=== PATIENT | female | born 1930 | race Two or more races ===

== ENCOUNTER 2016-04-28 15:07 | Emergency (ER) | payer MEDICARE, BC ==
[2016-04-28 16:43] VITALS: BP 128/95
--- NOTE | 2016-04-28 17:21 | UC ---
UC General HPI - HPI Summary HPI Summary: complaint of fatigue ever since she had pneumonia 10/2015 had pneumonia dx with legionnaires disease tretaed in the hopsital but hasn't felt like herself denies cough,shortness of breath and fever denies headache, sore throat,N/V/D currently taking augmentin for swollen glands and nasal congestion - seen by PCP last week currently being treated for arthritis by PCP with vicodin with relief of neck shoulder pain and headache - History of Current Complaint Chief Complaint: UCGeneralIllness Stated Complaint: SORE THROAT/COUGH Time Seen by Provider: 04/28/16 17:10 Hx Obtained From: Patient - Allergy/Home Medications Allergies/Adverse Reactions: Allergies Allergy/AdvReac Type Severity Reaction Status Date / Time codeine Allergy Vomiting Uncoded 04/28/16 16:47 Home Medications: Home Medications 1200 Calcium 1 tab PO BID 04/28/16 [History Confirmed 04/28/16] Amoxicillin/Clavulanate TAB* [Augmentin TAB 500 mg*] 500 mg PO BID 04/28/16 [ History Confirmed 04/28/16] Folic Acid TAB* [Folvite TAB*] 1 mg PO DAILY 04/28/16 [History Confirmed ] Hydrocodone-Acetaminophen [Vicodin 5-300 mg] 1 tab PO Q6HR PRN 04/28/16 [ History Confirmed 04/28/16] Indapamide 1.25 mg PO DAILY 04/28/16 [History Confirmed 04/28/16] Lactobacillus Acidophilu (GG)* [Culturelle*] 1 cap PO BID 04/28/16 [History Confirmed 04/28/16] Levothyroxine Sodium [Levoxyl] 1 tab PO QAM 04/28/16 [History Confirmed 04/28/16 ] Meclizine TAB* [Antivert 12.5 TAB*] 12.5 mg PO TID PRN 04/28/16 [History Confirmed 04/28/16] Meloxicam [Mobic] 15 mg PO DAILY 04/28/16 [History Confirmed 04/28/16] Multiple Vitamins W/ Minerals [Ocuvite Eye Health Formul] 2 cap PO DAILY [History Confirmed 04/28/16] PMH/Surg Hx/FS Hx/Imm Hx Previously Healthy: No - URI, - Surgical History Surgical History: Yes Surgery Procedure, Year, and Place: both rotator cuffs, lower back, R ankle fx repair - Social History Occupation: Disabled Lives: With Family Alcohol Use: Daily Alcohol Amount: wine Substance Use Type: None Smoking Status (MU): Never Smoked Tobacco Review of Systems Constitutional: Fatigue Skin: Negative Eyes: Negative ENT: Nasal Discharge Respiratory: Negative Cardiovascular: Negative Gastrointestinal: Negative Genitourinary: Negative Motor: Negative Neurovascular: Negative Musculoskeletal: Negative Neurological: Negative Psychological: Negative All Other Systems Reviewed And Are Negative: Yes Physical Exam Triage Information Reviewed: Yes Appearance: No Pain Distress, Well-Nourished, Thin Vital Signs: Initial Vital Signs Temp 98.3 F 04/28/16 16:35 Pulse 89 04/28/16 16:35 Resp 16 04/28/16 16:35 BP 128/95 04/28/16 16:35 Pulse Ox 98 04/28/16 16:35 Vital Signs Reviewed: Yes Eyes: Positive: Conjunctiva Clear ENT: Positive: Pharynx normal, Nasal congestion, TMs normal Neck: Positive: No Lymphadenopathy Respiratory: Positive: Lungs clear, Normal breath sounds, No respiratory distress. Negative: Rhonchi, Stridor, Wheezing Cardiovascular: Positive: RRR, No Murmur, Pulses Normal Abdomen Description: Positive: Nontender, Soft Bowel Sounds: Positive: Present Musculoskeletal: Positive: No Edema Neurological: Positive: Alert Psychological Exam: Normal Skin Exam: Normal Course/Dx - Course Course Of Treatment: exam completed. currently on augmentin for URI/sinusitis. chest x-ray negative for pneumonia, possible COPD followup with PCP - Differential Dx - Multi-Symptom Differential Diagnoses: Other - URI, pneumonia Provider Diagnoses: URI/sinsuitis resolving Discharge - Discharge Plan Condition: Stable Disposition: HOME Patient Education Materials: Sinusitis (ED) Referrals: Marcia Vasquez MD [Primary Care Provider] - Additional Instructions: Your chest x-ray shows that you have no pneumonia, you may have the beginning of chronic obstructive pulmonary disease-please call your primary care provider for followup. Please review your discharge instructions. If your symptoms do not improve please call your primary care provider or return to urgent care.
--- NOTE | 2016-04-28 17:42 | RAD ---
INDICATION: History of Legionnaire disease. Sore throat, cough. Headache, back of neck, joint pain. COMPARISON: Negative [place] [facility] [place] TECHNIQUE: Dual energy PA and routine lateral views of the chest were obtained. REPORT: Elevated lung volumes and mild prominence of interstitial markings. Small calcified granuloma at the LEFT lower lung zone peripherally. Negative for pleural effusion or pneumothorax. Negative for cardiomegaly. Unremarkable central pulmonary vasculature. Tortuous descending thoracic aorta. Surgical anchors in the bilateral humeral heads. Post resection of the distal RIGHT clavicle. IMPRESSION: Stigmata of potential chronic obstructive pulmonary disease as well as previous granulomatous disease. No acute cardiopulmonary process evident.
== END 2016-04-28 18:09 | disposition home or self-care (01) ==
LOC: UCCORT 15:07 → MERGE 15:07 → UCCORT 18:09
DX: J06.9 Acute upper respiratory infection, unspecified (principal); J32.9 Chronic sinusitis, unspecified; Z88.6 Allergy status to analgesic agent; H53.2 Diplopia
CPT/HCPCS: 36415; 71020; 85652; 86140; 99201; G0463

== ENCOUNTER 2017-08-21 11:08 | Emergency (ER) | payer MEDICARE, BC ==
[2017-08-21 12:03] VITALS: BP 152/74
--- NOTE | 2017-08-21 12:18 | RAD ---
INDICATION: LEFT wrist pain post fall on outstretched hand one week ago. COMPARISON: No relevant prior exams [place] [facility] [place]. TECHNIQUE: AP, lateral, and oblique views LEFT wrist. REPORT AND IMPRESSION: Bone density appears decreased throughout. No cortical disruption or suspicious trabecular irregularity to suggest fracture. Mild transverse diastases at the distal radial joint raising concern for TFCC degeneration or tear. 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 Nonfocal soft tissue swelling.
--- NOTE | 2017-08-21 12:19 | UC ---
Hand/Wrist HPI - HPI Summary HPI Summary: 87 yo female presents with left wrist pain s/p fall 10 days ago. She saw her PCP initially and was told it was likely a sprain, but to follow up for an XR if her pain persisted. Today she says her pain is much better but has some sharp pain with movement at the radial styloid. Denies numbness/tingling. - History Of Current Complaint Chief Complaint: UCUpperExtremity Stated Complaint: LEFT WRIST PAIN S/P FALL Time Seen by Provider: 08/21/17 11:57 Hx Obtained From: Patient Severity Initially: Severe Severity Currently: Moderate Pain Intensity: 5 Pain Scale Used: 0-10 Numeric Character Of Pain: Sharp Aggravating Factor(s): Movement - Allergies/Home Medications Allergies/Adverse Reactions: Allergies Allergy/AdvReac Type Severity Reaction Status Date / Time codeine AdvReac Vomiting Verified 08/21/17 11:56 peanut shell Allergy Hives Uncoded 08/21/17 11:56 Home Medications: Home Medications Acetaminophen [Acetaminophen Extra Strength] 1,000 mg PO QAM 08/21/17 [History Confirmed 08/21/17] C,E,Zinc,Copper 11/Nmntq9d/Lut [Ocuvite Adult 50 Plus Softgel] 1 each PO BID 02/28 [History Confirmed 08/21/17] Calcium Carbonate/Vitamin D3 [Calcium 600 + Vit D Tablet] 1 each PO BID [History Confirmed 08/21/17] Desloratidine (NF) [Clarinex (NF)] 5 mg PO DAILY 08/21/17 [History Confirmed 02/28] Folic Acid TAB* [Folvite TAB*] 1 mg PO DAILY 08/21/17 [History Confirmed ] Indapamide TAB* [Lozol TAB*] 2.5 mg PO DAILY 08/21/17 [History Confirmed ] Lactobacillus Acidophilus* [Culturelle*] 1 cap PO BID 08/21/17 [History Confirmed 08/21/17] Levothyroxine TAB* [Synthroid TAB*] 75 mcg PO DAILY 08/21/17 [History Confirmed 08/21/17] Meclizine TAB* [Antivert 12.5 TAB*] 12.5 mg PO TID PRN 08/21/17 [History Confirmed 08/21/17] Meloxicam(NF) [Mobic(NF)] 15 mg PO DAILY 08/21/17 [History Confirmed 08/21/17] PMH/Surg Hx/FS Hx/Imm Hx Endocrine History: Hypothyroidism Cardiovascular History: Hypertension - Surgical History Surgical History: Yes Surgery Procedure, Year, and Place: both rotator cuffs, lower back, R ankle fx repair - Family History Known Family History: Positive: Unknown - Social History Occupation: Retired Lives: With Family Alcohol Use: Daily Alcohol Amount: wine Substance Use Type: None Smoking Status (MU): Never Smoked Tobacco Review of Systems Constitutional: Negative Skin: Negative Respiratory: Negative Cardiovascular: Negative Neurovascular: Negative Musculoskeletal: Other: - LEft wrist pain Neurological: Negative Psychological: Negative All Other Systems Reviewed And Are Negative: Yes Physical Exam - Summary Physical Exam Summary: GENERAL: NAD. WDWN. No pain distress. SKIN: No rashes, sores, lesions, or open wounds. NECK: Supple. Nontender. No lymphadenopathy. CHEST: No accessory muscle use. Breathing comfortably and in no distress. CV: RRR. Without m/r/g. Pulses intact radial and ulnar. MSK: LEft wrist: Mild TTP over radial styloid. FROM. Strength 5/5 including deicer finisher strength. No edema or obvious bony deformities. No snuffbox tenderness. NEURO: Alert. Sensations intact hand and all fingers. PSYCH: Age appropriate behavior. Triage Information Reviewed: Yes Vital Signs: Initial Vital Signs Temp 97.9 F 08/21/17 11:51 Pulse 66 08/21/17 11:51 Resp 16 08/21/17 11:51 BP 152/74 08/21/17 11:51 Pulse Ox 97 08/21/17 11:51 Hand/Wrist Course/Dx - Course Course Of Treatment: XR: REPORT AND IMPRESSION: Bone density appears decreased throughout. No cortical disruption or suspicious trabecular irregularity to suggest fracture. Mild transverse diastases at the distal radial joint raising concern for TFCC degeneration or tear. 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 Nonfocal soft tissue swelling. Provided with thumb spica splint and f/u with ortho if needed. - Differential Dx/Diagnosis Provider Diagnoses: Left wrist pain Discharge - Sign-Out/Discharge Documenting (check all that apply): Discharge/Admit/Transfer - Discharge Plan Condition: Stable Disposition: HOME Patient Education Materials: Wrist Injury (ED) Referrals: Marcia Vasquez MD [Primary Care Provider] - Brett Webster MD [Medical Doctor] - If Needed Additional Instructions: If you develop a fever, shortness of breath, chest pain, new or worsening symptoms - please call your PCP or go to the ED. Your blood pressure was high at todays visit. Please see your primary provider within 4 weeks for recheck and re-evaluation 1) If your wrist is still bothering you in 1 week - please call Dr. Webster at the number below to schedule an appointment with him in [place]. - Billing Disposition and Condition Condition: STABLE Disposition: HOME
== END 2017-08-21 12:35 | disposition home or self-care (01) ==
LOC: UCCORT 11:08
DX: M25.532 Pain in left wrist (principal); Z88.5 Allergy status to narcotic agent; Z91.010 Allergy to peanuts; E03.9 Hypothyroidism, unspecified; I10 Essential (primary) hypertension; W19.XXXA Unspecified fall, initial encounter; Y93.9 Activity, unspecified; Y92.9 Unspecified place or not applicable
CPT/HCPCS: 99213; G0463

== ENCOUNTER 2018-01-29 17:28 | Emergency (ER) | payer MEDICARE, BC ==
[2018-01-29 18:10] VITALS: BP 149/82
[2018-01-29] MEDS ORDERED: Acetaminophen TAB* 325 MG PO ONE (18:33)
--- NOTE | 2018-01-29 18:55 | ED ---
Adult Trauma - HPI Summary HPI Summary: 87 yr old patient with complaint of fall. 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 She has pain left scapula, left para spinal t spine area, and the buttock area bilateral. - History of Current Complaint Chief Complaint: UCTrauma Stated Complaint: S/P FALL BACK PAIN Time Seen by Provider: 01/29/18 18:18 Pain Intensity: 10 - Allergy/Home Medications Allergies/Adverse Reactions: Allergies Allergy/AdvReac Type Severity Reaction Status Date / Time codeine AdvReac Vomiting Verified 08/21/17 11:56 peanut shell Allergy Hives Uncoded 08/21/17 11:56 Home Medications: Home Medications Acetaminophen [Extra Strength Non-Aspirin] 500 mg PO DAILY 01/29/18 [History Confirmed 01/29/18] PMH/Surg Hx/FS Hx/Imm Hx Endocrine/Hematology History: Reports: Hx Thyroid Disease Cardiovascular History: Denies: Hx Pacemaker/ICD Psychiatric History: Denies: Hx Panic Disorder - Surgical History Surgery Procedure, Year, and Place: both rotator cuffs, lower back, R ankle fx repair Infectious Disease History: No Infectious Disease History: Reports: Hx Hepatitis - 1953 Denies: History Other Infectious Disease, Traveled Outside the [place] in Last 30 Days - Family History Known Family History: Positive: Unknown - Social History Alcohol Use: Daily Alcohol Amount: wine Substance Use Type: Reports: None Smoking Status (MU): Never Smoked Tobacco Review of Systems Constitutional: Negative Positive: Other - back pain after fall. All Other Systems Reviewed And Are Negative: Yes Physical Exam Triage Information Reviewed: Yes Vital Signs On Initial Exam: Initial Vitals Temp Pulse Resp BP Pulse Ox 98.1 F 95 18 149/82 97 01/29/18 18:00 01/29/18 18:00 01/29/18 18:00 01/29/18 18:00 01/29/18 18:00 Vital Signs Reviewed: Yes Appearance: Positive: Well-Appearing, No Pain Distress Skin: Positive: Other - small bruise abrasion left paraspinal area t spine level about T 5 3 inches lateral. Head/Face: Positive: Normal Head/Face Inspection Eyes: Positive: EOMI ENT: Positive: Normal ENT inspection, Pharynx normal, TMs normal Neck: Positive: Supple, Nontender Respiratory/Lung Sounds: Positive: Clear to Auscultation, Breath Sounds Present Cardiovascular: Positive: RRR. Negative: Murmur Abdomen Description: Positive: Nontender Musculoskeletal: Positive: Strength/ROM Intact Neurological: Positive: Sensory/Motor Intact, Alert, Oriented to Person Place, Time, CN Intact II-III, Normal Gait, Finger to Nose, Speech Normal Psychiatric: Positive: Normal - [place] Coma Scale Best Eye Response: 4 - Spontaneous Best Motor Response: 6 - Obeys Commands Best Verbal Response: 5 - Oriented Coma Scale Total: 15 Diagnostics - Vital Signs Vital Signs Temp Pulse Resp BP Pulse Ox 01/29/18 18:00 98.1 F 95 18 149/82 97 - Laboratory Lab Statement: Any lab studies that have been ordered have been reviewed, and results considered in the medical decision making process. - Radiology T/L/S spine, pelvis, chest, scapula Xray Interpretation: Positive (See Comments) - ribs 5/6 on left posterior fx. No pneumo. DJD rest of spine. No acute fx seen. scapula neg. pelvis neg. Radiology Interpretation Completed By: ED Physician Adult Trauma Course/Dx - Course Course Of Treatment: 87 yr old with non displaced 5/6 rib fx on left posterior. Tylenol for pain. FU with PMD. She is 10 hours out from injury and good vital and saturation. No distress. - Diagnoses Provider Diagnoses: Left rib fracture, Hypertension Discharge - Sign-Out/Discharge Documenting (check all that apply): Patient Departure All imaging exams completed and their final reports reviewed: No - Discharge Plan Condition: Good Disposition: HOME Patient Education Materials: Rib Fracture (ED), Back Pain (ED), Hypertension ( ED) Referrals: Marcia Vasquez MD [Primary Care Provider] - 2 Days Additional Instructions: for any new or worsening symptoms go to the ER. Your final reading on xrays will take place tomorrow morning when radiology reviews them. - Billing Disposition and Condition Condition: GOOD Disposition: Home
--- NOTE | 2018-01-30 07:49 | RAD ---
HISTORY: pain, fall COMPARISONS: None VIEWS: 1 , Single frontal view of the pelvis FINDINGS: BONE DENSITY: There is diffuse osteopenia. BONES: There is no displaced fracture. JOINTS: There is moderate osteoarthritis of the SI joints with mild osteoarthritis of the hips bilaterally. ALIGNMENT: There is no dislocation. SOFT TISSUES: Unremarkable. OTHER FINDINGS: None. IMPRESSION: OSTEOPENIA. NO ACUTE OSSEOUS INJURY. THE DEGREE OF OSTEOPENIA MAY MAKE A NONDISPLACED FRACTURE RADIOGRAPHICALLY OCCULT. IF SYMPTOMS PERSIST, RECOMMEND REPEAT IMAGING. R0
--- NOTE | 2018-01-30 07:49 | RAD ---
HISTORY: chest pain COMPARISONS: April 28, 2016 VIEWS: 4: Frontal dual-energy and lateral views of the chest. FINDINGS: CARDIOMEDIASTINAL SILHOUETTE: The aorta is tortuous. The cardiomediastinal silhouette is otherwise unremarkable. SO: The so are normal. PLEURA: The costophrenic angles are sharp. No pleural abnormalities are noted. There is no pneumothorax. LUNG PARENCHYMA: There is hyperinflation with flattening of the diaphragm and expansion of the AP diameter of the chest. Calcified granulomas are noted. ABDOMEN: The upper abdomen is clear. There is no subphrenic gas. BONES AND SOFT TISSUES: There is postsurgical change to the shoulders bilaterally. The left fifth/sixth rib fracture described in the preliminary report is not appreciated on the current examination. OTHER: None. IMPRESSION: COPD. R2
--- NOTE | 2018-01-30 07:51 | RAD ---
HISTORY: pain fall COMPARISONS: None VIEWS: 2, Frontal and lateral views of the thoracic spine. FINDINGS: ALIGNMENT: There is a mild scoliotic curvature of the spine. VERTEBRAL BODIES: The vertebral body heights are normal. The interpedicular distances are normal. There is diffuse osteopenia. Is multilevel anterolateral marginal osteophyte formation. JOINTS: Unremarkable. INTERVERTEBRAL DISCS: There is diffuse loss of intervertebral disc height. SOFT TISSUE: Unremarkable OTHER: The visualized lungs are clear. IMPRESSION: OSTEOPENIA. DEGENERATIVE DISC DISEASE. R0
--- NOTE | 2018-01-30 07:51 | RAD ---
HISTORY: pain, fall COMPARISONS: None VIEWS: 2 , Frontal and lateral views of the left scapula FINDINGS: BONE DENSITY: There is diffuse osteopenia. BONES: There is no displaced fracture. There is postsurgical change to the humeral head. JOINTS: There is no arthropathy. ALIGNMENT: There is no dislocation. SOFT TISSUES: Unremarkable. OTHER FINDINGS: None. IMPRESSION: NO ACUTE OSSEOUS INJURY. IF SYMPTOMS PERSIST, RECOMMEND REPEAT IMAGING. R0
--- NOTE | 2018-01-30 07:52 | RAD ---
HISTORY: pain fall COMPARISONS: None VIEWS: 5 , Frontal, lateral, coned-down lateral sacral, and bilateral oblique views of the lumbar spine. FINDINGS: ALIGNMENT: There is a dextroscoliotic curvature of the spine. VERTEBRAL BODIES: There is diffuse osteopenia. There is multilevel anterolateral marginal osteophyte formation. The vertebral bodies are preserved in height. There are sclerotic reactive endplate changes most pronounced at L2-L3 and L5-S1. JOINTS: There is diffuse facet osteoarthritis. INTERVERTEBRAL DISCS: There is diffuse loss of intervertebral disc height. SOFT TISSUE: Unremarkable. OTHER: There is osteoarthritis of the hips and SI joints.. The lung bases are clear. IMPRESSION: 1. OSTEOPENIA. 2. DEGENERATIVE DISC DISEASE AND OSTEOARTHRITIS. 3. SCOLIOSIS. R0
--- NOTE | 2018-01-30 07:54 | RAD ---
HISTORY: PAIN AFTER FALL COMPARISONS: None VIEWS: 3 , frontal, inlet, and lateral views of the sacrum and coccyx. FINDINGS: BONE DENSITY: There is diffuse osteopenia. BONES: There is no displaced fracture. Sacral arches are intact. JOINTS: There is osteoarthritis of the hips, SI joints, and facet joints. ALIGNMENT: There is no dislocation. SOFT TISSUES: Unremarkable. OTHER FINDINGS: None. IMPRESSION: 1. OSTEOPENIA. 2. OSTEOARTHRITIS. 3. NO ACUTE OSSEOUS INJURY. THE DEGREE OF OSTEOPENIA MAY MAKE A NONDISPLACED FRACTURE RADIOGRAPHICALLY OCCULT. IF SYMPTOMS PERSIST, RECOMMEND REPEAT IMAGING. R0
--- NOTE | 2018-01-30 08:11 | ED ---
Progress - Progress Note Progress Note: X rays final reads reviewed and many show osteopenia but no obvious fracture. Course/Dx - Course Course Of Treatment: 87 yr old with non displaced 5/6 rib fx on left posterior. Tylenol for pain. FU with PMD. She is 10 hours out from injury and good vital and saturation. No distress. - Diagnoses Provider Diagnoses: Left rib fracture, Hypertension Discharge - Sign-Out/Discharge Documenting (check all that apply): Post-Discharge Follow Up All imaging exams completed and their final reports reviewed: Yes - Discharge Plan Condition: Good Disposition: HOME Patient Education Materials: Rib Fracture (ED), Hypertension (ED), Back Pain ( ED) Referrals: Marcia Vasquez MD [Primary Care Provider] - 2 Days Additional Instructions: for any new or worsening symptoms go to the ER. Your final reading on xrays will take place tomorrow morning when radiology reviews them. - Billing Disposition and Condition Condition: GOOD Disposition: Home
== END 2018-01-29 19:55 | disposition home or self-care (01) ==
LOC: UCCORT 17:28
DX: S22.42XA Multiple fractures of ribs, left side, initial encounter for closed fracture (principal); W10.9XXA Fall (on) (from) unspecified stairs and steps, initial encounter; Y93.01 Activity, walking, marching and hiking; Y92.242 Post office as the place of occurrence of the external cause
CPT/HCPCS: 71046; 72070; 72110; 72170; 72220; 99212; A9270-GY; G0463

== ENCOUNTER 2018-04-01 09:08 | Day surgery (SDC) | payer MEDICARE, BC ==
[~2018-04-01 09:08] MED LIST: Buffered Lidocaine 0.9% SYRIN* 5 ML/SYR SYRINGE INTRADERM ONE; Lactated Ringers 1000 ML Bag* 1,000 ML IV SCH
[2018-04-01] MEDS ORDERED: fentaNYL* 50 MCG/ML 2 ML VIAL (100 MCG VIAL) ONE (11:03)
[2018-04-01] MEDS ORDERED: Naloxone* 0.4 MG/ML 1 ML VIAL IV PRN (11:56)
[2018-04-01 12:38] VITALS: BP 159/73
[2018-04-01] MEDS ORDERED: Lidocaine 2% PF * 5 ML VIAL ONE (12:48)
[2018-04-01] MEDS ORDERED: Propofol* 10 MG/ML 20 ML BTL ONE (12:48)
[2018-04-01] MEDS ORDERED: Bupivacaine 0.25% SDV PF* 10 ML VIAL INJ ONE (13:04)
--- NOTE | 2018-04-02 02:49 | OP ---
DATE OF OPERATION: 04/01/[address] [facility] DATE OF : 30 SURGEON: Brett Webster MD. BACTERIOLOGY TECHNICIAN: KIMBERLY Flores. ANESTHESIOLOGIST: Dr. Simmons. ANESTHESIA: Local MAC. PRE-OP DIAGNOSIS: Left wrist chronic de Quervain disease. POST-OP DIAGNOSIS: Left wrist chronic de Quervain disease. OPERATIVE PROCEDURE: Left wrist de Quervain's release with extensor tendon first dorsal compartment tenosynovectomy. INDICATIONS: Iman has chronic de Quervain's. She has had multiple injections. We talked about risks and benefits. She is still very, very tender over the first dorsal compartment tendon sheath. She wanted to proceed with the the tendon release. She does have some basal joint arthritis that has been injected , but for now, she wants to just do the de Quervain's release which is very appropriate. ESTIMATED BLOOD LOSS: 2 mL. COMPLICATIONS: None. FINDINGS: See above and below. DESCRIPTION OF PROCEDURE: Iman Augustin was seen in the preoperative holding area. The correct side, site, and procedure were identified. We came back to the operating room and the arm was prepped and draped in the usual fashion and a time-out was performed. The arm was exsanguinated with the Esmarch and the tourniquet was inflated to 225 mmHg. I made a 1 to 2 cm transverse incision over the radial wrist transversally just proximal to the radial styloid. Dissection was carried down and full-thickness flaps were raised off of the first dorsal compartment tendon sheath. The radial nerve was retracted dorsally. I then incised the tendon sheath along the dorsal margin in line with the tendons. There was extensive amount of tenosynovitis, really quite a bit. I performed a full tenosynovectomy. There was no accessory compartment. Once I completed the release proximally and distally with the tenotomy scissors and there was no more compression on the nerve and all the tenosynovitis had been excised and sent off the specimen, I irrigated out the wound. The skin was closed with 4-0 Monocryl suture and a Steri-Strips. Soft dressings were applied and she was taken to the recovery room in stable condition. [id number]/CPS #: [id number] [facility]
== END 2018-04-01 12:48 | disposition home or self-care (01) ==
LOC: OREAST 09:08
PROVIDERS: ATTEND Orthopaedic Surgery Hand Surgery
DX: M65.4 Radial styloid tenosynovitis [de Quervain] (principal); M18.12 Unilateral primary osteoarthritis of first carpometacarpal joint, left hand; I10 Essential (primary) hypertension; J45.909 Unspecified asthma, uncomplicated; K21.9 Gastro-esophageal reflux disease without esophagitis; M19.90 Unspecified osteoarthritis, unspecified site
CPT/HCPCS: 88304; J2704; J3010; J3490